=== PATIENT | male | born 1995 | race Hispanic/Latino ===

== ENCOUNTER 2021-01-12 10:36 | Emergency (ER) | payer OTHER ==
--- NOTE | 2021-01-12 11:43 | RAD REPORT ---
EXAM DESCRIPTION: US - Extremity Venous Uni Ltd - 01/12/2021 11:24 am CLINICAL HISTORY: PAIN COMPARISON: None. TECHNIQUE: Real-time sonographic evaluation of the left lower extremity deep venous system was perfo rmed. FINDINGS: Normal compressibility, flow augmentation, phasic flow and spontaneous flow are identified in the left lower extremity common femoral, superficial femoral, popliteal and posterior tibial vein s. No intraluminal filling defects seen. IMPRESSION: No DVT in the left lower extremity.
--- NOTE | 2021-01-12 12:11 | ER ---
Nurse's Notes [facility] Name: Mike Lackey Jr Age: 25 yrs Sex: Male : 1995 Arrival Date: 01/12/2021 Time: 10:37 Bed 20 Private MD: Simon Carver C Diagnosis: Cellulitis of left lower limb Presentation: 01/12 10:46 Chief complaint: Patient states: Awoke yesterday with a bruise and pain to L lower ll1 thigh area. No known trauma. No swelling. No fever. Coronavirus screen: Vaccine status: Patient reports receiving the 2nd dose of the covid vaccine. Client denies travel out of the [place] in the last 14 days. At this time, the client does not indicate any symptoms associated with coronavirus-19. Ebola Screen: Patient denies travel to an Ebola-affected area in the 21 days before illness onset. Initial Sepsis Screen: Does the patient meet any 2 criteria? HR > 90 bpm. No. Patient's initial sepsis screen is negative. Does the patient have a suspected source of infection? No. Patient's initial sepsis screen is negative. Risk Assessment: Do you want to hurt yourself or someone else? Patient reports no desire to harm self or others. Onset of symptoms was January 11, 2021. 10:46 Method Of Arrival: Ambulatory ll1 10:46 Acuity: MAXI 3 ll1 Historical: - Allergies: 10:46 No Known Allergies; ll1 - PMHx: 10:46 None; ll1 - PSHx: 10:46 None; ll1 - Immunization history:: Client reports receiving the 2nd dose of the Covid vaccine. - Social history:: Smoking status: Patient denies any tobacco usage or history of. Screenin:47 Abuse screen: Denies threats or abuse. Nutritional screening: No deficits noted. ll1 Tuberculosis screening: No symptoms or risk factors identified. Fall Risk Total Vega Fall Scale indicates No Risk (0-24 pts). Assessment: 10:47 General: Appears in no apparent distress. Behavior is calm, cooperative, appropriate ll1 for age. Pain: Complains of pain in L thigh Aggravated by increased activity. Musculoskeletal: Circulation, motion, and sensation intact. Capillary refill < 3 seconds, Range of motion: intact in all extremities, Reports pain in left leg. 11:45 Reassessment: No changes from previously documented assessment. Patient and/or family ll1 updated on plan of care and expected duration. Pain level reassessed. Patient is alert, oriented x 3, equal unlabored respirations, skin warm/dry/pink. 12:17 Reassessment: No changes from previously documented assessment. Patient and/or family ll1 updated on plan of care and expected duration. Pain level reassessed. Patient is alert, oriented x 3, equal unlabored respirations, skin warm/dry/pink. Patient states feeling better. Vital Signs: 10:46 BP 162 / 109; Pulse 107; Resp 18; Temp 98.2; Pulse Ox 99% ; Weight 90.72 kg; Height 5 ll1 ft. 6 in. (167.64 cm); Pain 4/10; 12:16 BP 155 / 109; Pulse 88; Resp 17; Pulse Ox 99% on R/A; ll1 10:46 Body Mass Index 32.28 (90.72 kg, 167.64 cm) ll1 ED Course: 10:37 Patient arrived in ED. as 10:37 Simon Carver MD is Private Physician. as 10:38 Ольга Adkins [facility]C [facility] kb 10:38 Solitario Simpson MD is Attending Physician. kb 10:45 Ruddy Matias, YUNIOR is Primary Nurse. ll1 10:46 Arm band placed on Patient placed in an exam room, on a stretcher. ll1 10:47 Triage completed. ll1 10:47 Patient has correct armband on for positive identification. Bed in low position. Call ll1 light in reach. Side rails up X 1. Pulse ox on. NIBP on. 11:23 US Extremity Venous Unilateral Ltd In Process Unspecified. EDMS 12:10 Simon Carver MD is Referral Physician. kb 12:17 No provider procedures requiring assistance completed. Patient did not have IV access ll1 during this emergency room visit. Administered Medications: No medications were administered Outcome: 12:10 Discharge ordered by . kb 12:17 Discharged to home ambulatory. ll1 12:17 Condition: stable 12:17 Discharge instructions given to patient, Instructed on discharge instructions, follow up and referral plans. medication usage, Demonstrated understanding of instructions, follow-up care, medications, Prescriptions given X 1. 12:17 Patient left the ED. ll1 Signatures: Dispatcher [employer] Ольга Mclaughlin, GOLF MANAGER-C GOLF MANAGER-Madiha Pyle Lynsay, RN RN ll1
--- NOTE | 2021-01-12 12:11 | EDPHYS ---
Physician Documentation [facility] Name: Mike Lackey Jr Age: 25 yrs Sex: Male : 1995 Arrival Date: 01/12/2021 Time: 10:37 Bed 20 Private MD: Simon Carver C ED Physician Solitario Simpson HPI: 01/12 11:08 This 25 yrs old Male presents to ER via Ambulatory with complaints of Leg Pain.kb 11:08 The patient has not experienced similar symptoms in the past. The patient has not kb recently seen a physician. 11:08 The patient presents with pain, that is acute. The complaints affect the medial aspect kb of left thigh. Context: The problem was sustained at home, the patient can fully bear weight, the patient is able to ambulate. Onset: The symptoms/episode began/occurred yesterday. Modifying factors: The symptoms are alleviated by nothing. the symptoms are aggravated by nothing. Associated signs and symptoms: The patient has no apparent associated signs or symptoms. Treatment prior to arrival includes: no previous treatment. Severity of symptoms: At their worst the symptoms were moderate, in the emergency department the symptoms are unchanged. Historical: - Allergies: 10:46 No Known Allergies; ll1 - PMHx: 10:46 None; ll1 - PSHx: 10:46 None; ll1 - Immunization history:: Client reports receiving the 2nd dose of the Covid vaccine. - Social history:: Smoking status: Patient denies any tobacco usage or history of. ROS: 11:07 Constitutional: Negative for fever, chills, and weight loss. kb 11:07 MS/extremity: Positive for pain, of the medial aspect of left thigh. 11:07 All other systems are negative. Exam: 12:09 Constitutional: This is a well developed, well nourished patient who is awake, alert, kb and in no acute distress. Head/Face: Normocephalic, atraumatic. ENT: Moist Mucous membranes Cardiovascular: Regular rate and rhythm with a normal S1 and S2. No gallops, murmurs, or rubs. No pulse deficits. Respiratory: Respirations even and unlabored. No increased work of breathing, no retractions or nasal flaring. MS/ Extremity: Pulses equal, no cyanosis. Neurovascular intact. Full, normal range of motion. Neuro: Awake and alert, GCS 15, oriented to person, place, time, and situation. Moves all extremities. Normal gait. Psych: Awake, alert, with orientation to person, place and time. Behavior, mood, and affect are within normal limits. 12:09 Skin: cellulitis, that is minimal, on the medial aspect of left thigh. Vital Signs: 10:46 BP 162 / 109; Pulse 107; Resp 18; Temp 98.2; Pulse Ox 99% ; Weight 90.72 kg; Height 5 ll1 ft. 6 in. (167.64 cm); Pain 4/10; 12:16 BP 155 / 109; Pulse 88; Resp 17; Pulse Ox 99% on R/A; ll1 10:46 Body Mass Index 32.28 (90.72 kg, 167.64 cm) ll1 MDM: 10:38 Patient medically screened. kb 11:07 Data reviewed: vital signs, nurses notes. Data interpreted: Pulse oximetry: on room air kb is 99 %. Interpretation: normal. 12:10 Counseling: I had a detailed discussion with the patient and/or guardian regarding: the kb historical points, exam findings, and any diagnostic results supporting the discharge/admit diagnosis, radiology results, the need for outpatient follow up, a family practitioner, to return to the emergency department if symptoms worsen or persist or if there are any questions or concerns that arise at home. 01/12 10:43 Order name: US Extremity Venous Unilateral Ltd; Complete Time: 11:54 kb Administered Medications: No medications were administered Disposition: 01/13 03:42 Co-signature as Attending Physician, Solitario Simpson MD I agree with the assessment and jessica plan of care. Disposition Summary: 01/12/21 12:10 Discharge Ordered Location: Home kb Condition: Stable kb Diagnosis - Cellulitis of left lower limb kb Followup: kb - With: Emergency Department - When: As needed - Reason: Worsening of condition Followup: kb - With: Simon Carver MD - When: 2 - 3 days - Reason: Recheck today's complaints, Continuance of care, Re-evaluation by your physician Discharge Instructions: - Discharge Summary Sheet kb - Cellulitis, Adult, [id number] kb Forms: - Medication Reconciliation Form kb - Thank You Letter kb - Antibiotic Education kb - Prescription Opioid Use kb - Work release form eb Prescriptions: - Bactrim DS 800-160 mg Oral Tablet - take 1 tablet by ORAL route every 12 hours for 10 days; 20 tablet; Refills: 0, kb Product Selection Permitted Signatures: Dispatcher [employer] Ольга Mclaughlin, IVON RATLIFF-Solitario Manning MD MD cha Lewis, Lynsay RN RN ll1
[2021-01-12 12:23] VITALS: TEMP 98.2; O2SAT 99
[2021-01-12 12:24] VITALS: BP 155/109
== END 2021-01-12 12:17 | disposition home or self-care (01) ==
LOC: ER 10:36
DX: L03.116 Cellulitis of left lower limb (principal)
CPT/HCPCS: 93971; 99283